=== PATIENT | female | born 1975 | race Caucasian/White ===

== ENCOUNTER 2019-12-01 19:49 | Observation (INO) | payer MEDICAID ==
[~2019-12-01] VITALS: Ht 162.6 cm; Wt 68.0 kg
--- NOTE | 2019-12-01 20:15 | NUR ---
PT HERE WITH C/O LEFT CHEST AND ARM AND BILATERAL UPPER EXTREMITY WEAKNESS THAT STRTED APPROX. 1100 TODAY. PT AAO X 4, DRESSED IN GOWN AND ON FULL MONITOR. LAB AND XRAY AT BEDSIDE. CALL LIGHT WITHIN REACH AND SIDERAIL X [address] PT ON ROOM AIR, NAD, NO NEEDS AT THIS TIME.
--- NOTE | 2019-12-01 20:20 | NUR ---
AT BEDSIDE FOR EXAM.
[2019-12-01 20:21] LABS: BASOPHILS # (AUTO) 0.03 x10^3/uL (0-0.1); BASOPHILS % (AUTO) 1 % (0-1); EOSINOPHILS # (AUTO) 0.18 x10^3/uL (0-0.4); EOSINOPHILS % (AUTO) 3 % (1-7); LYMPHOCYTES # (AUTO) 2.03 x10^3/uL (1-3.4); LYMPHOCYTES % (AUTO) 37 % (22-44); MD NO; MEAN CORPUSCULAR HEMOGLOBIN 31.1 pg (27.0-34.8); MEAN CORPUSCULAR HGB CONC 34.4 g/dL (32.4-35.8); MEAN CORPUSCULAR VOLUME 90.2 fL (80-100); MEAN PLATELET VOLUME 7.6 fL (7.4-10.4); MONOCYTES % (AUTO) 5 % (2-9); NEUTROPHILS # (AUTO) 2.94 x10^3/uL (1.8-6.8); NEUTROPHILS % (AUTO) 54 % (42-75); PLATELET COUNT 133 x10^3/uL (130-400); RED BLOOD COUNT 4.28 x10^6/uL (3.82-5.3); RED CELL DISTRIBUTION WIDTH 13.1 % (9.6-15.2)
[2019-12-01 20:36] LABS: ALBUMIN 3.7 g/dL (3.4-5.0); ANION GAP 6 mmol/L (5-15); CALCIUM 8.6 mg/dL (8.5-10.1); CHLORIDE 107 mmol/L (98-107); CREATININE 1.06 mg/dL (0.55-1.02)
[2019-12-01 20:40] LABS: TROPONIN I < 0.015 ng/mL (0.000-0.045)
--- NOTE | 2019-12-01 20:50 | NUR ---
REPORT TO SHIELA CHANG. CARE TRANSFERRED AT THIS TIME.
[2019-12-01] MEDS ORDERED: OMNIPAQUE 350 MG/ML, 100ML BOTTLE ONE (21:25)
[2019-12-01] MEDS ORDERED: ACETAMINOPHEN 325 MG TABLET PO PRN (22:30)
[2019-12-01] MEDS ORDERED: OXYcodone IR 5MG TABLET PO PRN (22:30)
[2019-12-01] MEDS ORDERED: PROMETHAZINE 25 MG/ML, 1ML IM PRN (22:30)
[2019-12-01] MEDS ORDERED: NITROGLYCERIN 0.4 MG BOTTLE (25 TABS) SL PRN (22:30)
[2019-12-01] MEDS ORDERED: ONDANSETRON ODT 4 MG PO PRN (22:30)
[2019-12-01] MEDS ORDERED: DOCUSATE 100 MG CAPSULE PO PRN (22:30)
[2019-12-01] MEDS ORDERED: POLYETHYLENE GLYCOL 17 GM PACKET PO PRN (22:30)
[2019-12-01] MEDS ORDERED: morphine SULFATE 10 MG/ML, 1ML IVPush PRN (22:30)
[2019-12-01] MEDS ORDERED: BISACODYL 10 MG SUPP PR PRN (22:30)
[2019-12-01] MEDS ORDERED: hydrALAzine 20 MG/ML, 1ML IVPush PRN (22:30)
[2019-12-01] MEDS ORDERED: ONDANSETRON 2MG/ML, 2ML IVPush PRN (22:30)
--- NOTE | 2019-12-01 22:43 | NUR ---
NM exams to be done in AM, not stat exams
[2019-12-01 22:55] VITALS: BP 120/77
[2019-12-01 22:55] LABS: FREE T4 (FREE THYROXINE) 1.06 ng/dL (0.76-1.46)
[2019-12-02] MEDS: HEPARIN 5,000 UNITS/ML, 1ML SQ SCH ×3 (00:14→15:09)
[2019-12-02] MEDS: SODIUM CHLORIDE 0.9% 1,000 ML IV SCH ×2 (00:14→10:49)
[2019-12-02 03:14] LABS: TROPONIN I < 0.015 ng/mL (0.000-0.045)
[2019-12-02 05:06] LABS: BASOPHILS # (AUTO) 0.04 x10^3/uL (0-0.1); BASOPHILS % (AUTO) 1 % (0-1); EOSINOPHILS # (AUTO) 0.16 x10^3/uL (0-0.4); EOSINOPHILS % (AUTO) 4 % (1-7); LYMPHOCYTES # (AUTO) 2.26 x10^3/uL (1-3.4); LYMPHOCYTES % (AUTO) 50 % (22-44); MD NO; MEAN CORPUSCULAR HEMOGLOBIN 30.8 pg (27.0-34.8); MEAN CORPUSCULAR HGB CONC 33.7 g/dL (32.4-35.8); MEAN CORPUSCULAR VOLUME 91.5 fL (80-100); MEAN PLATELET VOLUME 7.6 fL (7.4-10.4); MONOCYTES # (AUTO) 0.27 x10^3/uL (0.2-0.8); MONOCYTES % (AUTO) 6 % (2-9); NEUTROPHILS # (AUTO) 1.77 x10^3/uL (1.8-6.8); NEUTROPHILS % (AUTO) 39 % (42-75); PLATELET COUNT 118 x10^3/uL (130-400); RED BLOOD COUNT 4.16 x10^6/uL (3.82-5.3)
[2019-12-02 05:12] LABS: ANION GAP 7 mmol/L (5-15); CALCIUM 8.1 mg/dL (8.5-10.1); CHLORIDE 108 mmol/L (98-107); CREATININE 1.02 mg/dL (0.55-1.02)
[2019-12-02 05:13] LABS: ALANINE AMINOTRANSFERASE 211 U/L (12-78); ALBUMIN 3.2 g/dL (3.4-5.0); CHOLESTEROL, TOTAL 103 mg/dL (140-239); TRIGLYCERIDES 76 mg/dL (50-200); VLDL CHOLESTEROL 15 mg/dL (0-25)
[2019-12-02 05:17] LABS: ALKALINE PHOSPHATASE 30 U/L (45-117); BILIRUBIN,TOTAL 0.5 mg/dL (0.2-1.0); CHOL/HDL RATIO 2.3; HDL CHOL % 44 % (28-40); HDL CHOLESTEROL (DIRECT) 45 mg/dL (40-60); LDL CHOLESTEROL,CALCULATED 43 mg/dL (54-169); TOTAL PROTEIN 6.2 g/dL (6.4-8.2); TROPONIN I < 0.015 ng/mL (0.000-0.045)
[2019-12-02] MEDS ORDERED: ASPIRIN 325 MG TABLET EC PO SCH (06:00)
[2019-12-02 06:53] VITALS: BP 104/68
[2019-12-02] MEDS ORDERED: ACYC-114 PO (09:20)
[2019-12-02] MEDS ORDERED: LEVO1TAB10 PO (09:21)
[2019-12-02 15:20] VITALS: BP 114/68
[2019-12-02] MEDS ORDERED: OMEP-110 PO (16:46)
== END 2019-12-02 18:31 | disposition home or self-care (01) ==
LOC: ED 21:55 → INTOOBSV 21:56 → EDIP 21:56 → 5SO 22:59
PROVIDERS: ADMIT Internal Medicine; ATTEND Internal Medicine
DX: R07.89 Other chest pain (principal); N17.0 Acute kidney failure with tubular necrosis; R42 Dizziness and giddiness; R07.2 Precordial pain; R53.1 Weakness; R79.0 Abnormal level of blood mineral; R94.5 Abnormal results of liver function studies; Z87.59 Personal history of other complications of pregnancy, childbirth and the puerperium; Z79.899 Other long term (current) drug therapy; Z86.69 Personal history of other diseases of the nervous system and sense organs
CPT/HCPCS: 36415; 71045; 71275; 76700; 80048; 80053; 80061; 80307; 82040; 83036; 83735; 84439; 84443; 84484; 84703; 85025; 85379; 93005; 93017; 93306; 93356; 96360; 96361; 96372; 99285; G0378; J1644; J7030; Q9967